=== PATIENT | male | born 1970 | race Caucasian/White ===

== ENCOUNTER 2021-09-09 01:46 | Emergency (ER) | payer BC ==
[2021-09-09 02:51] LABS: BASOPHILS % (AUTO) 0.3 %; EOSINOPHILS # (AUTO) 0.2 10^3/uL (0.0-0.7); HCT - HEMATOCRIT 45.4 % (42.0-52.0); HGB - HEMOGLOBIN 15.3 g/dL (14.0-18.0); LYMPHOCYTES # (AUTO) 2.1 10^3/uL (1.5-3.5); LYMPHOCYTES % (AUTO) 22.9 %; MEAN CORPUSCULAR HEMOGLOBIN 29.4 pg (27.0-31.0); MEAN CORPUSCULAR HGB CONC 33.7 g/dL (32.0-36.0); MEAN CORPUSCULAR VOLUME 87.1 fL (80.0-94.0); MEAN PLATELET VOLUME 8.4 fL (7.4-11.4); MONOCYTES % (AUTO) 10.4 %; NEUTROPHILS % (AUTO) 64.1 %; PLT - PLATELET COUNT 311 10^3/uL (130-450); RED BLOOD COUNT 5.21 10^6/uL (4.70-6.10); RED CELL DISTRIBUTION WIDTH 13.2 % (12.0-15.0); WHITE BLOOD COUNT 9.3 x10^3/uL (4.8-10.8)
[2021-09-09 03:04] LABS: ALBUMIN 4.4 g/dL (3.2-5.5); ALBUMIN/GLOBULIN RATIO 1.5 (1.0-2.2); BILIRUBIN,TOTAL 0.6 mg/dL (0.2-1.0); CALCIUM 9.2 mg/dL (8.5-10.3); CREATININE 0.8 mg/dL (0.6-1.2); TOTAL PROTEIN 7.3 g/dL (6.7-8.2)
[2021-09-09] MEDS: HYDROmorphone 0.5 MG/0.5 ML SYRINGE IVP STA (03:30)
[2021-09-09] MEDS ORDERED: IOVERSOL 320 100 ML VIAL IVP ONE (03:42)
[2021-09-09] MEDS: IOVERSOL 320 100 ML VIAL IVP ONE (04:04)
--- NOTE | 2021-09-09 06:30 | ED Physician Documentation ---
PD HPI ABD PAIN - Stated complaint Stated Complaint: R SIDE PX - Chief complaint Chief Complaint: Abd Pain - History obtained from History obtained from: Patient - Additional information Additional information: The patient comes to the emergency department chief complaint of right upper quadrant abdominal pain. He states it started yesterday and that he took some all-inclusive Tums, which were for not only indigestion but viral symptoms as well. He states that at first he thought they were helping, but that actually seemed to make the pain worse after well. Patient states he has not been nause ated or vomiting. He has been having normal bowel movements. No fevers or chills. He denies any history of gallbladder issues in himself or his family. No history of ulcers. He has not had any abdominal surgeries. No other complaints at this time. Review of Systems Ten Systems: 10 systems reviewed and negative Constitutional: reports: Reviewed and negative Eyes: reports: Reviewed and negative Ears: reports: Reviewed and negative Nose: reports: Reviewed and negative Throat: reports: Reviewed and negative Cardiac: reports: Reviewed and negative Respiratory: reports: Reviewed and negative GI: reports: Abdominal Pain : reports: Reviewed and negative Skin: reports: Reviewed and negative Musculoskeletal: reports: Reviewed and negative Neurologic: reports: Reviewed and negative Psychiatric: reports: Reviewed and negative Endocrine: reports: Reviewed and negative Immunocompromised: reports: Reviewed and negative PD PAST MEDICAL HISTORY - Past Medical History Past Medical History: No Cardiovascular: None Respiratory: None Neuro: None Endocrine/Autoimmune: None GI: None : None HEENT: None Psych: None Musculoskeletal: None Derm: None - Past Surgical History Past Surgical History: No - Present Medications Home Medications: Ambulatory Orders Medication Instructions Recorded Confirmed Docusate Sodium 100Mg Capsule 100 mg PO DAILY #30 cap 09/09/21 [Colace 100Mg Capsule] HYDROcod/ACETAM 5/325 [[place] 5/325] 1 - 2 tablet PO Q6H PRN #10 tablet 09/09/21 Omeprazole 40 mg PO DAILY #15 cap 09/09/21 - Allergies Allergies/Adverse Reactions: Allergies Allergy/AdvReac Type Severity Reaction Status Date / Time No Known Drug Allergies Allergy Verified 09/09/21 02:19 - Social History Does the pt smoke?: No Smoking Status: Never smoker Does the pt drink ETOH?: No Does the pt have substance abuse?: No - Immunizations Immunizations are current?: Yes - POLST Patient has POLST: No PD ED PE NORMAL - Vitals Vital signs reviewed: Yes - General General: Alert and oriented X 3, No acute distress, Well developed/nourished, Other (The patient is up walking around the room, stating it is uncomfortable to be laying down.) - HEENT HEENT: Atraumatic, PERRL, EOMI, Moist mucous membranes - Neck Neck: Supple, no meningeal sign - Cardiac Cardiac: RRR, No murmur, Strong equal pulses - Respiratory Respiratory: No respiratory distress, Clear bilaterally - Abdomen Abdomen: Soft, Non distended, Other (Moderate right upper quadrant tenderness no rebound or guarding.) - Back Back: No CVA TTP - Derm Derm: Normal color, Warm and dry, No rash - Extremities Extremities: No deformity, No edema - Neuro Neuro: Alert and oriented X 3 - Psych Psych: Normal mood, Normal affect Results - Vitals Vitals: Vital Signs - 24 hr 09/09/21 09/09/21 09/09/21 02:18 03:31 06:02 Temperature 36.1 C L Heart Rate 90 88 87 Respiratory 17 16 15 Rate Blood Pressure 163/106 H 126/103 H O2 Saturation 97 95 97 Oxygen O2 Source Room air - Labs Labs: Laboratory Tests 09/09/21 09/09/21 02:46 02:46 WBC 9.3 RBC 5.21 Hgb 15.3 Hct 45.4 MCV 87.1 MCH 29.4 MCHC 33.7 RDW 13.2 Plt Count 311 MPV 8.4 Neut # (Auto) 6.0 Lymph # (Auto) 2.1 [place] # (Auto) 1.0 Eos # (Auto) 0.2 Baso # (Auto) 0.0 Absolute Nucleated RBC 0.00 Nucleated RBC % 0.0 Sodium 136 Potassium 4.0 Chloride 102 Carbon Dioxide 24 Anion Gap 10.0 BUN 16 Creatinine 0.8 Estimated GFR (MDRD) 102 Glucose 118 H Calcium 9.2 Total Bilirubin 0.6 AST 28 ALT 45 Alkaline Phosphatase 37 L Total Protein 7.3 Albumin 4.4 Globulin 2.9 Albumin/Globulin Ratio 1.5 Lipase 32 - Rads (name of study) CT abdomen pelvis Radiology: Final report received, EMP read indepedently, See rad report (Fecalization of distal small bowel without evidence of obstruction. There is some bowel stasis, but ileum is patent. No evidence of cholecystitis or appendicitis.) PD MEDICAL DECISION MAKING - ED course Complexity details: reviewed results, re-evaluated patient, considered differential, d/w patient ED course: Patient was treated symptomatically with a small dose of Dilaudid, and was found to be feeling better. He had laboratory studies done which were unremarkable, and sent for CT scan of the abdomen and pelvis. This showed some feces in the distal small bowel, though according to radiologist interpretation the terminal ileum was patent. No other abnormalities were noted. The patient had had normal bowel movements and was without any sense of nausea, and I did not feel clinically that he had a bowel obstruction. I discussed the findings with the patient. He has definitely been in some discomfort and I have explained to him that I am not entirely sure why he is having pain. I discussed with the patient that this may be a self-limited condition and simply goes away on its own, but that he should call his primary doctor today to make a follow-up appointment to discuss having an endoscopy. The patient would like some symptomatic management at home, and I have prescribed analgesia, as well as a stool softener and some omeprazole. We have discussed the usual indications for return. Departure - Departure Disposition: 01 Home, Self Care Clinical Impression: Abdominal pain Qualifiers: Abdominal location: right upper quadrant Qualified Code(s): R10.11 - Right upper quadrant pain Condition: Stable Instructions: ED Abdominal Pain Unkn Cause Male Prescriptions: Docusate Sodium 100Mg Capsule [Colace 100Mg Capsule] 100 mg PO DAILY #30 cap HYDROcod/ACETAM 5/325 [[place] 5/325] 1 - 2 tablet PO Q6H PRN #10 tablet PRN Reason: Pain Omeprazole 40 mg PO DAILY #15 cap Comments: Your labs look great today. Your CT scan shows feces at the end of the small intestine and some backup of stool. However, your small intestine appears open on the CT, and does not appear to be obstructed at this time. Additionally, you do not have other symptoms of bowel obstruction. No other cause for your pain has been found. Your gallbladder is without stones or inflammation or blockage. No evidence of appendicitis was seen. At this point in time, it is unclear exactly what is causing your abdominal pain, but no infection or acutely surgical condition has been identified. In general, we recommend that Your primary care physician follow-up on this, and consider referring you to have an endoscopy done. This is where he cameras but down your throat to look at your esophagus, stomach, and duodenum, or first part of your small intestine. Sometimes the pain can be from inflammation of the wall of any of the structures, which can be a precursor to formation of an ulcer. Endoscopy is the best tool to identify this kind of situation. It is also possible that you have some focal inflammation which will simply resolve on its own. You may take the medication prescribed as needed, and follow-up with your primary care physician. If you develop severe pain with fevers or vomiting, please return to the emergency department. Your prescriptions have been electronically transmitted to [facility] in [place].
[2021-09-09 06:40] VITALS: BP 119/83
--- NOTE | 2021-09-09 08:52 | CT Report ---
PROCEDURE: Abdomen/Pelvis W INDICATIONS: R abd pain, tenderness CONTRAST: IV CONTRAST: Optiray 320 ml: 100 PO CONTRAST: *NO PO CONTRAST TECHNIQUE: After the administration of intravenous contrast, 5 mm thick sections acquired from the diaphragms to the symphysis. 5 mm thick coronal and sagittal reformats were acquired. For radiation dose reducti on, the following was used: automated exposure control, adjustment of mA and/or kV according to michael ent size. COMPARISON: None. FINDINGS: Image quality: Excellent. ABDOMEN: Lung bases: There are posterior groundglass opacities likely representing dependent atelectasis in th e lung bases. Heart size is normal. Solid organs: There are 2 small hypodense foci within the left hepatic lobe which is too small to ludy racterize but likely represent cysts. Gallbladder appears within normal limits without calcified gall stones. Biliary system is non dilated. The spleen is normal in size. Pancreas enhances normally with out peripancreatic fat stranding or fluid collections. No adrenal nodules. Kidneys demonstrate no h ydronephrosis. Peritoneum and bowel: There is mild segmental fecalization within the ileum in the lower abdomen wit hout definite abnormal dilatation. There is a transition on series 3 image 79 without associated madi l wall thickening or discrete obstructing lesion. Bowel loops demonstrate otherwise normal wall thick ness and caliber. The appendix is normal in appearance. No free fluid or air. Nodes and vessels: No retroperitoneal or mesenteric adenopathy by size criteria. Aorta and inferior vena cava are normal in size. Miscellaneous: No ventral hernias. PELVIS: Genitourinary: Bladder wall thickness is normal. Miscellaneous: No inguinal hernias or adenopathy. Bones: No suspicious bony lesions. No vertebral body compression fractures. IMPRESSION: 1. Mild segmental fecalization within the ileum without definite abnormal dilatation suggestive of st asis. The differential includes a mild partial obstruction or stricture. 2. No evidence of appendicitis. Reviewed by: Viktor Gutierrez MD on 09/09/2021 8:51 AM [facility] Approved by: Viktor Gutierrez MD on 09/09/2021 8:51 AM [facility] Station ID: [id number]
== END 2021-09-09 06:40 | disposition home or self-care (01) ==
LOC: ED 01:46
DX: R10.11 Right upper quadrant pain (principal)
CPT/HCPCS: 36415; 74177; 80053; 83690; 85025; 96374; 99284; J1170; Q9967

== ENCOUNTER 2022-02-12 07:29 | Day surgery (SDC) | payer BC ==
[2022-02-12] MEDS ORDERED: LACTATED RINGERS 1,000 ML IV ONE (07:46)
--- NOTE | 2022-02-12 08:13 | ANESTHESIA ---
Pre-Anesthesia VS, & Labs - Diagnosis colonoscopy screening - Procedure colonoscopy Height: 5 ft 11 in Weight (kg): 85 kg Body Mass Index: 26.1 BMI Classification: Overweight - NPO >8 hours - Lab Results Lab results reviewed: No Home Medications and Allergies Home Medications: Ambulatory Orders No Known Home Medications 02/11/22 No Known Home Medications 02/11/22 Allergies/Adverse Reactions: Allergies Allergy/AdvReac Type Severity Reaction Status Date / Time No Known Drug Allergies Allergy Verified 02/11/22 13:31 Anes History & Medical History - Anesthetic History Anesthesia Complications: reports: No previous complications Family history of Anesthesia Complications: Denies Family history of Malignant Hyperthermia: Denies - Medical History Cardiovascular: reports: None, Arrhythmia Pulmonary: reports: None Gastrointestinal: reports: None Urinary: reports: None Neuro: reports: None Musculoskeletal: reports: None Endocrine/Autoimmune: reports: None Blood Disorders: reports: None Skin: reports: None Smoking Status: Never smoker History of Cancer?: No Exam General: Alert, Oriented x3, Cooperative, No acute distress Dental: WNL Mouth Openin Fingerbreadth Neck Mobility: Normal Mallampati classification: II Thyromental Distance: 4-6 cm Respiratory: Lungs clear, Normal breath sounds, No respiratory distress, No accessory muscle use Cardiovascular: Regular rate, Normal S1, Normal S2, No murmurs Mental/Cognitive Status: Alert/Oriented X3 Cognitive Status: Within normal limits Plan Anesthesia Type: General, Total IV Consent for Procedure(s) Verified and Reviewed: Yes Code Status: Attempt Resuscitation ASA classification: 1-Healthy patient Is this case an emergency?: No
[2022-02-12] MEDS ORDERED: LIDOCAINE-MPF 2% 5 ML VIAL ONE (08:33)
[2022-02-12] MEDS ORDERED: PROPOFOL 500 MG/50 ML 500 MG/50 ML VIAL ONE (08:33)
--- NOTE | 2022-02-12 09:20 | HISTORY & PHYSICAL EXAMINATION ---
Chief Complaint - Chief Complaint Chief Complaint: here for colon cancer screening History of Present Illness - History Obtained From Records Reviewed: yes History obtained from: pt Exam Limitations: none - History of Present Illness HPI Comment/Other: here for screening colonoscopy. no problems and negative fhx for colon cancer. History - Past Medical History Cardiovascular: reports: None, Arrhythmia Respiratory: reports: None Neuro: reports: None Endocrine/Autoimmune: reports: None GI: reports: None : reports: None HEENT: reports: None Psych: reports: None Musculoskeletal: reports: None Derm: reports: None MRSA Hx?: No - POLST Patient has POLST: No Meds/Allgy - Home Medications Home Medications: Ambulatory Orders Medication Instructions Recorded Confirmed No Known Home Medications 02/11/22 02/11/22 - Allergies Allergies/Adverse Reactions: Allergies Allergy/AdvReac Type Severity Reaction Status Date / Time No Known Drug Allergies Allergy Verified 02/11/22 13:31 Review of Systems - Other Findings Other Findings: 10 pt ros as above otherwise unremarkable Exam - Vital Signs Reviewed Vital Signs: Yes - Physical Exam General Appearance: positive: No acute distress, Alert Eyes Bilateral: positive: PERRL, EOMI, No scleral icterus ENT: positive: No signs of dehydration Neck: positive: No JVD, Trachea midline Respiratory: positive: Breath sounds nml Cardiovascular: positive: Regular rate & rhythm Abdomen: positive: Non-tender, No distention Neurologic/Psychiatric: positive: Oriented x3 Conclusion/Plan - Problem List (1) Colon cancer screening Conclusion/Plan: plan colonoscopy. parq held and consent obtained - Lab Results Lab results reviewed: No
[2022-02-12] MEDS ORDERED: PROPOFOL 200 MG/20 ML VIAL IVP ONE (09:47)
[2022-02-12] MEDS ORDERED: LACTATED RINGERS 250 ML IV ONE (09:53)
--- NOTE | 2022-02-12 10:02 | ANESTHESIA POST OP EVALUATION ---
Anesthesia Post Eval - Post Anesthesia Eval Vitals: Last Vital Signs Temp 36.3 C L 02/12/22 09:53 Pulse 78 02/12/22 09:53 Resp 20 02/12/22 09:53 BP 98/55 L 02/12/22 09:53 Pulse Ox 95 02/12/22 09:53 CV Function Including HR & BP: Stable Pain Control: Satisfactory Nausea & Vomiting: Negative Mental Status: Baseline Respiratory Status: Airway Patent Hydration Status: Satisfactory Anesthesia Complications: None
[2022-02-12 10:28] VITALS: BP 122/89
== END 2022-02-12 07:30 | disposition home or self-care (01) ==
LOC: SDS 07:29
PROVIDERS: ATTEND Surgery
DX: Z12.11 Encounter for screening for malignant neoplasm of colon (principal); K57.30 Diverticulosis of large intestine without perforation or abscess without bleeding
CPT/HCPCS: 45378; J7120

== ENCOUNTER 2022-09-30 14:30 | Outpatient (CLI) | payer BC | END 2022-09-30 23:59 | disposition home or self-care (01) | LOC: LAB 14:30 | PROVIDERS: ATTEND Nurse Practitioner | DX: R10.9 Unspecified abdominal pain (principal); R14.0 Abdominal distension (gaseous) | CPT/HCPCS: 81599; 87045; 87046; 87177; 87209; 87427; 89055 ==

== ENCOUNTER 2022-11-17 08:00 | Outpatient (CLI) | payer BC ==
[2022-11-17 15:18] LABS: H. PYLORIS ANTIGEN STL NEGATIVE (Negative)
[2022-11-18 06:10] LABS: ADENOVIRUS F 40/41 Not Detected (Not Detected); ASTROVIRUS Not Detected (Not Detected); C DIFFICILE TOXIN A/B Not Detected (Not Detected); CAMPYLOBACTER Not Detected (Not Detected); CRYPTOSPORIDIUM Not Detected (Not Detected); CYCLOSPORA CAYETANENSIS Not Detected (Not Detected); ENTAMOEBA HISTOLYTICA Not Detected (Not Detected); ENTEROAGGREGATIVE E COLI Not Detected (Not Detected); ENTEROPATHOGENIC E COLI Not Detected (Not Detected); ENTEROTOXIGENIC E COLI Not Detected (Not Detected); GIARDIA LAMBLIA Not Detected (Not Detected); NOROVIRUS GI/GII Not Detected (Not Detected); PLESIOMONAS SHIGELLOIDES Not Detected (Not Detected); ROTAVIRUS A Not Detected (Not Detected); SALMONELLA Not Detected (Not Detected); SAPOVIRUS Not Detected (Not Detected); SHIGA-TOXIN-PRODUCING E COLI Not Detected (Not Detected); SHIGELLA/ENTEROINVASIVE E COLI Not Detected (Not Detected); VIBRIO Not Detected (Not Detected); VIBRIO CHOLERAE Not Detected (Not Detected); YERSINIA ENTEROCOLITICA Not Detected (Not Detected)
== END 2022-11-17 23:59 | disposition home or self-care (01) ==
LOC: LAB.R 08:00
PROVIDERS: ATTEND Emergency Medicine
DX: R10.9 Unspecified abdominal pain (principal); R14.0 Abdominal distension (gaseous); R10.13 Epigastric pain
CPT/HCPCS: 87338; 87507

== ENCOUNTER 2022-11-17 09:53 | Outpatient (CLI) | payer BC | END 2022-11-17 09:54 | disposition home or self-care (01) | LOC: LAB.S 09:53 | PROVIDERS: ATTEND Emergency Medicine | DX: R10.9 Unspecified abdominal pain (principal); R14.0 Abdominal distension (gaseous); K30 Functional dyspepsia ==

== ENCOUNTER 2022-11-19 07:00 | Outpatient (CLI) | payer BC | END 2022-11-19 23:59 | disposition home or self-care (01) | LOC: LAB.S 07:00 | PROVIDERS: ATTEND Nurse Practitioner | DX: R14.0 Abdominal distension (gaseous) (principal); R10.9 Unspecified abdominal pain | CPT/HCPCS: 81599; 87045; 87046; 87177; 87427; 89055 ==

== ENCOUNTER 2022-11-25 09:00 | Outpatient (CLI) | payer BC | END 2022-11-25 23:59 | disposition home or self-care (01) | LOC: LAB 09:00 | PROVIDERS: ATTEND Nurse Practitioner | DX: R14.0 Abdominal distension (gaseous) (principal); R10.9 Unspecified abdominal pain | CPT/HCPCS: 83630; 87045; 87046; 87177; 87427 ==

== ENCOUNTER 2024-03-29 08:00 | Outpatient (CLI) | payer BC | END 2024-03-29 08:01 | disposition home or self-care (01) | LOC: LAB.R 08:00 | PROVIDERS: ATTEND Registered Nurse | DX: R19.4 Change in bowel habit (principal); A07.8 Other specified protozoal intestinal diseases | CPT/HCPCS: 87177; 87209 ==